=== PATIENT | female | born 1975 | race African-American/Black ===

== ENCOUNTER 2017-12-18 21:01 | Emergency (ER) | payer OTHER ==
[~2017-12-18] VITALS: Ht 160 cm; Wt 110.0 kg
[2017-12-18 21:28] VITALS: BP 214/116; PULSE 91; RESP 16; TEMP 98.5; O2SAT 99
[2017-12-19] VITALS: BP 216/138; PULSE 94; RESP 16; TEMP 98.5; O2SAT 99
[2017-12-19] MEDS ORDERED: diphenhydrAMINE HCL 50 MG/ML VIAL IV PUSH ONE
[2017-12-19] MEDS ORDERED: PROCHLORPERAZINE INJ 10 MG/2 ML VIAL IV PUSH ONE
[2017-12-19 00:37] VITALS: BP 197/97; PULSE 93; RESP 16; O2SAT 98
[2017-12-19 00:57] VITALS: BP 170/94; PULSE 94; RESP 16; O2SAT 100
--- NOTE | 2017-12-19 01:53 | PD ---
HPI . Headache Chief Complaint: Hypertension Time Seen by Provider: 23:51 Travel History International Travel<30 days: No Contact w/Intl Traveler<30days: No Traveled to known affect area: No History of Present Illness HPI Patient presents with a chief complaint of a headache. Onset was 3 days ago. Pain is constant. It is a frontal headache. Pain is rated 10/10. She has not taken any [id number] medication for her headache. She presumes that her headache is secondary to elevated blood pressure. She has a history of hypertension. [facility] Past Medical History Hypertension: Yes ?: Not Tubal Ligation: Yes Social History Alcohol Use: No Tobacco Use: No Substance Use: No Allergies-Medications (Allergen,Severity, Reaction): Coded Allergies: No Known Allergies (Unverified , 12/18/17) Review of Systems Except as stated in HPI: all other systems reviewed are Neg General / Constitutional: No: Fever Eyes: No: Blurred Vision HENT: Positive: Headaches Gastrointestinal: No: Nausea, Vomiting Physical Exam Narrative GENERAL: Awake and alert and in no acute distress. SKIN: warm/dry. HEAD: Normocephalic. Positive scalp tenderness. EYES: Pupils equal and round. No scleral icterus. No injection or drainage. ENT: No nasal bleeding or discharge. Mucous membranes pink and moist. NECK: Trachea midline. Full range of motion without pain.. CARDIOVASCULAR: Regular rate and rhythm. RESPIRATORY: No accessory muscle use. MUSCULOSKELETAL: No obvious deformities. NEUROLOGICAL: Awake and alert. No obvious cranial nerve deficits. Motor grossly within normal limits. Normal speech. PSYCHIATRIC: Appropriate mood and affect; insight and judgment normal. Data Data Last Documented VS Vital Signs Date Time Temp Pulse Resp B/P (MAP) Pulse Ox O2 Delivery O2 Flow Rate FiO2 12/19/17 00:57 94 16 170/94 (119) 100 Room Air 12/19/17 00:00 98.5 Orders Orders ^ Saline Lock (12/18/17 23:52) Diphenhydramine Inj (Benadryl Inj) (12/19/17 00:00) Prochlorperazine Inj (Compazine Inj) (12/19/17 00:00) MDM Medical Decision Making Medical Screen Exam Complete: Yes Emergency Medical Condition: Yes Differential Diagnosis Differential diagnosis of headache includes but is not limited to migraine, muscle contraction headache, brain tumor, brain bleed Narrative Course This patient presents with a 3 day history of frontal headache. She is neurologically intact. She is not running a fever. Her neck is supple. Her headache has been treated with IV Compazine and Benadryl. She feels much better. Her blood pressure has come down nicely. Diagnosis Primary Impression: Headache Qualified Codes: G44.209 - Tension-type headache, unspecified, not intractable Patient Instructions: Acute Headache (DC), General Instructions Disposition: 01 DISCHARGE HOME Condition: Stable Nuria Foreman MD Dec 19, 2017 01:53
[2017-12-19 02:06] VITALS: BP 160/88
--- NOTE | 2017-12-19 02:48 | PD ---
HPI Chief Complaint: Hypertension Time Seen by Provider: 23:51 Travel History International Travel<30 days: No Contact w/Intl Traveler<30days: No Traveled to known affect area: No [facility] Past Medical History Hypertension: Yes ?: Not Tubal Ligation: Yes Social History Alcohol Use: No Tobacco Use: No Substance Use: No Allergies-Medications (Allergen,Severity, Reaction): Coded Allergies: No Known Allergies (Unverified , 12/18/17) Data Data Last Documented VS Vital Signs Date Time Temp Pulse Resp B/P (MAP) Pulse Ox O2 Delivery O2 Flow Rate FiO2 12/19/17 00:57 94 16 170/94 (119) 100 Room Air 12/19/17 00:00 98.5 Orders Orders ^ Saline Lock (12/18/17 23:52) Diphenhydramine Inj (Benadryl Inj) (12/19/17 00:00) Prochlorperazine Inj (Compazine Inj) (12/19/17 00:00) Nuria Foreman MD Dec 19, 2017 02:48
--- NOTE | 2017-12-19 18:28 | EKG ---
Date Performed: 12/18/2017 Time Performed: 23:59:09 PTAGE: 42 years EKG: Sinus rhythm POSSIBLE LEFT ATRIAL ENLARGEMENT POSSIBLE LEFT VENTRICULAR HYPERTROPHY ABNORMAL ECG NO PREVIOUS TRACING DOCTOR: Otto Storey Interpretating Date/Time 12/19/2017 18:27:38
== END 2017-12-19 03:43 | disposition home or self-care (01) ==
LOC: NEPE 21:01
DX: G44.209 Tension-type headache, unspecified, not intractable (principal); I10 Essential (primary) hypertension
CPT/HCPCS: 93005; 96374; 96375; 99284; J0780; J1200